=== PATIENT | male | born 1995 | race African-American/Black ===

== ENCOUNTER 2020-07-06 15:17 | Observation (INO) ==
[2020-07-06] MEDS ORDERED: CLINDAMYCIN INJ 600 MG in PREMIX 1 EACH IV STA (17:40)
[2020-07-06] MEDS ORDERED: LABETALOL 20 MG/4 ML SYRINGE IV STA (17:43)
[2020-07-06] MEDS ORDERED: amLODIPine 5 MG TABLET PO STA (17:43)
[2020-07-06 17:55] LABS: Basophils % 0.3 % (0.0-0.8); Eosinophils % 0.2 % (0.00-10.9); Hematocrit 48.5 VOL% (42.0-52.0); Hemoglobin 15.4 GM/DL (14.0-18.0); Immature Granulocytes % 0.3 %; Immature Granulocytes Absolute 0.04 #; Lymphocytes # 2.2 10*3/uL (1.4-4.0); Lymphocytes % 19.1 % (21.2-54.2); Mean Corpuscular HGB Conc 31.8 GM/DL (32-36); Mean Corpuscular Volume 84.2 FL (87-102); Mean Platelet Volume 10.2 FL (9.6-12.0); Monocytes % 9.2 % (1.7-12.7); Neutrophils % 70.9 % (38.7-73.9); Platelet Count 168 T/CUMM (130-400); Red Blood Count 5.76 MC/CUMM (3.8-5.5); Red Cell Distribution Width 13.8 % (9.3-17.3); White Blood Count 11.5 T/CUMM (4-12)
[2020-07-06 18:11] LABS: Albumin 3.5 G/DL (3.4-5.0); Bilirubin,Total 1.1 MG/DL (0.2-1.0); Calcium 9.1 MG/DL (8.5-10.1); Potassium 3.7 MMOL/L (3.5-5.1); Total Protein 8.4 G/DL (6.4-8.3)
[2020-07-06] MEDS ORDERED: DEXAMETHASONE 10 MG/1 ML VIAL IV ONE (18:17)
[2020-07-06] MEDS ORDERED: PIPERACILLIN/TAZOBACTAM 3,375 MG in SODIUM CHLORIDE 0.9% 100 ML IV STA (18:17)
[2020-07-06] MEDS ORDERED: hydrALAZINE 20 MG/1 ML VIAL IV STA (18:18)
[2020-07-06] MEDS ORDERED: ONDANSETRON 4 MG/2 ML VIAL ONE (18:59)
[2020-07-06] MEDS ORDERED: HYDROmorphone 2 MG/1 ML VIAL ONE (18:59)
[2020-07-06] MEDS ORDERED: HYDROmorphone 2 MG/1 ML VIAL IV ONE (19:00)
[2020-07-06] MEDS ORDERED: ONDANSETRON 4 MG/2 ML VIAL IV STA (19:00)
[2020-07-06] MEDS ORDERED: DEXTROSE 50% 25 GM/50 ML VIAL IV PRN (19:47)
[2020-07-06] MEDS ORDERED: ONDANSETRON 4 MG/2 ML VIAL IV PRN (19:47)
[2020-07-06] MEDS ORDERED: ACETAMINOPHEN 500 MG TABLET PO PRN (19:47)
[2020-07-06] MEDS ORDERED: GLUCAGON 1 MG VIAL IM PRN (19:47)
[2020-07-06] MEDS: SODIUM CHLOR 0.9% KCL 20 MEQ 20 MEQ/1,000 ML BAG IV SCH (21:19)
[2020-07-06] MEDS: hydrALAZINE 20 MG/1 ML VIAL IV PRN (22:31)
[2020-07-07] MEDS: PIPERACILLIN/TAZOBACTAM 3,375 MG in SODIUM CHLORIDE 0.9% 100 ML IV SCH ×2 (02:36→13:22)
[2020-07-07] MEDS: MORPHINE 4 MG/1 ML VIAL IV PRN ×2 (02:36→16:49)
[2020-07-07] MEDS ORDERED: PANTOPRAZOLE 40 MG VIAL IV SCH (09:00)
[2020-07-07] MEDS ORDERED: lisinopriL 10 MG TABLET PO SCH (09:00)
[2020-07-07] MEDS ORDERED: hydroCHLOROthiazide 25 MG TABLET PO SCH (09:00)
[2020-07-07] MEDS ORDERED: PANTOPRAZOLE 40 MG TABLET PO SCH (09:00)
[2020-07-07 09:27] LABS: Basophils % 0.1 % (0.0-0.8); Hematocrit 48.2 VOL% (42.0-52.0); Hemoglobin 15.1 GM/DL (14.0-18.0); Immature Granulocytes % 0.6 %; Immature Granulocytes Absolute 0.08 #; Lymphocytes # 1.3 10*3/uL (1.4-4.0); Lymphocytes % 9.7 % (21.2-54.2); Mean Corpuscular HGB Conc 31.3 GM/DL (32-36); Mean Corpuscular Volume 85.6 FL (87-102); Mean Platelet Volume 10.3 FL (9.6-12.0); Monocytes % 4.3 % (1.7-12.7); Neutrophils % 85.3 % (38.7-73.9); Platelet Count 217 T/CUMM (130-400); Red Blood Count 5.63 MC/CUMM (3.8-5.5); Red Cell Distribution Width 13.9 % (9.3-17.3); White Blood Count 13.7 T/CUMM (4-12)
[2020-07-07 09:44] LABS: Calcium 9.3 MG/DL (8.5-10.1); Osmolality,Calculated 277.5 MOS/KG (273-304)
[2020-07-07] MEDS: SODIUM CHLOR 0.9% KCL 20 MEQ 20 MEQ/1,000 ML BAG IV SCH ×2 (11:26→13:23)
[2020-07-07 15:57] VITALS: BP 173/101
[2020-07-07] MEDS: hydrALAZINE 20 MG/1 ML VIAL IV PRN (16:14)
== END 2020-07-07 17:45 | disposition home or self-care (01) ==
LOC: N.EDINP 15:17 → N.ED 15:17 → N.3E 07-07 12:48
PROVIDERS: ADMIT Internal Medicine; ATTEND Internal Medicine

== ENCOUNTER 2020-09-22 03:40 | Inpatient (IN) ==
[2020-09-22] MEDS ORDERED: CLINDAMYCIN 600 MG/4 ML VIAL IM STA (03:57)
[2020-09-22] MEDS ORDERED: KETOROLAC 60 MG/2 ML VIAL IM STA (03:57)
[2020-09-22] MEDS ORDERED: DEXAMETHASONE 4 MG/1 ML VIAL IM STA (03:57)
[2020-09-22] MEDS ORDERED: hydrALAZINE 20 MG/1 ML VIAL IM STA (04:04)
[2020-09-22 05:49] LABS: Basophils % 0.3 % (0.0-0.8); Hemoglobin 14.6 GM/DL (14.0-18.0); Immature Granulocytes % 0.5 %; Immature Granulocytes Absolute 0.07 #; Lymphocytes # 1.9 10*3/uL (1.4-4.0); Lymphocytes % 12.5 % (21.2-54.2); Mean Corpuscular HGB Conc 31.7 GM/DL (32-36); Mean Corpuscular Volume 83.8 FL (87-102); Mean Platelet Volume 10.5 FL (9.6-12.0); Monocytes % 8.7 % (1.7-12.7); Platelet Count 254 T/CUMM (130-400); Red Blood Count 5.49 MC/CUMM (3.8-5.5); Red Cell Distribution Width 13.9 % (9.3-17.3); White Blood Count 14.9 T/CUMM (4-12)
[2020-09-22 06:09] LABS: Albumin 3.6 G/DL (3.4-5.0); Bilirubin,Total 1.6 MG/DL (0.2-1.0); Calcium 9.7 MG/DL (8.5-10.1); Osmolality,Calculated 272.1 MOS/KG (273-304); Potassium 3.3 MMOL/L (3.5-5.1); Total Protein 8.6 G/DL (6.4-8.2)
[2020-09-22] MEDS ORDERED: PIPERACILLIN/TAZOBACTAM 3,375 MG in SODIUM CHLORIDE 0.9% 100 ML IV STA (06:11)
[2020-09-22] MEDS ORDERED: GLUCAGON 1 MG VIAL IM PRN (07:32)
[2020-09-22] MEDS ORDERED: DEXTROSE 50% 25 GM/50 ML VIAL IV PRN (07:32)
[2020-09-22] MEDS: hydrALAZINE 20 MG/1 ML VIAL IV PRN ×3 (07:52→21:44)
[2020-09-22] MEDS: ONDANSETRON 4 MG/2 ML VIAL IV PRN ×2 (10:04→22:50)
[2020-09-22] MEDS: ACETAMINOPHEN 325 MG TABLET PO PRN ×2 (10:05→15:41)
[2020-09-22] MEDS: POTASSIUM CHLORIDE RIDER 10 MEQ in PREMIX 1 EACH IV PRN ×4 (12:02→18:38)
[2020-09-22] MEDS: DEXAMETHASONE 4 MG/1 ML VIAL IV SCH ×2 (15:41→20:02)
[2020-09-22] MEDS: AMPICILLIN/SULBACTAM 3,000 MG in SODIUM CHLORIDE 0.9% 100 ML IV SCH ×2 (15:41→20:03)
[2020-09-22] MEDS ORDERED: KETOROLAC 30 MG/1 ML VIAL IV PRN (17:09)
[2020-09-23] MEDS ORDERED: PROMETHAZINE 25 MG/1 ML VIAL IM PRN (01:36)
[2020-09-23] MEDS: AMPICILLIN/SULBACTAM 3,000 MG in SODIUM CHLORIDE 0.9% 100 ML IV SCH ×3 (03:31→15:31)
[2020-09-23] MEDS: DEXAMETHASONE 4 MG/1 ML VIAL IV SCH ×3 (03:33→15:31)
[2020-09-23 05:50] LABS: Basophils % 0.2 % (0.0-0.8); Hematocrit 44.8 VOL% (42.0-52.0); Hemoglobin 14.6 GM/DL (14.0-18.0); Immature Granulocytes % 0.8 %; Immature Granulocytes Absolute 0.13 #; Lymphocytes # 1.3 10*3/uL (1.4-4.0); Lymphocytes % 7.9 % (21.2-54.2); Mean Corpuscular HGB Conc 32.6 GM/DL (32-36); Mean Corpuscular Volume 81.9 FL (87-102); Mean Platelet Volume 10.8 FL (9.6-12.0); Monocytes % 6.7 % (1.7-12.7); Neutrophils % 84.4 % (38.7-73.9); Platelet Count 272 T/CUMM (130-400); Red Blood Count 5.47 MC/CUMM (3.8-5.5); Red Cell Distribution Width 14.2 % (9.3-17.3); White Blood Count 15.8 T/CUMM (4-12)
[2020-09-23 06:15] LABS: Albumin 3.1 G/DL (3.4-5.0); Bilirubin,Total 0.5 MG/DL (0.2-1.0); Calcium 9.5 MG/DL (8.5-10.1); Osmolality,Calculated 282.5 MOS/KG (273-304); Potassium 3.9 MMOL/L (3.5-5.1); Total Protein 8.5 G/DL (6.4-8.2)
[2020-09-23] MEDS ORDERED: SODIUM CHLORIDE 0.9% 1,000 ML IV SCH (11:00)
[2020-09-23 12:27] VITALS: BP 160/115
[2020-09-23] MEDS ORDERED: amLODIPine 5 MG TABLET PO SCH (13:00)
== END 2020-09-23 15:30 | disposition home or self-care (01) | DRG 153 ==
LOC: N.EDINP 03:40 → N.ED 03:40 → N.5E 08:17
PROVIDERS: ADMIT Internal Medicine; ATTEND Internal Medicine